=== PATIENT | female | born 1960 | race Caucasian/White ===

== ENCOUNTER 2018-09-14 09:32 | Emergency (ER) | payer BC, OTHER ==
--- NOTE | 2018-09-14 09:37 | PDOC ---
History of Present Illness - General Chief Complaint: Choking Sensation Stated Complaint: STEAK STUCK IN THROAT Time Seen by Provider: 09/14/18 09:37 - History of Present Illness Initial Comments: 58yo F with no significant PMH presenting with foreign body in her throat. Patient states she swallowed a large piece of steak on Saturday night around 8: 30pm and did not feel it pass. Afterwards, any attempt to eat or drink something would just come up. Patient presented to an urgent care which took a soft tissue radiograph which was equivocal: patient was told she either had an obstruction or irritation and was informed to come to the ED if she had not improved in a couple days. Patient denies nausea, but has frequent gagging, as well as vomits anything that she attempts to consume. Denies history of acid reflux or other GI problems. Never had an endoscopy. She feels discomfort in her mid-chest but not in her throat. Last bowel movement was yesterday and was a normal formed brown stool without blood. Patient has not passed flatus the entire weekend. No fevers, chills, chest pain, or shortness of breath. PCP: Dr. Milner Past History - Past Medical History Allergies/Adverse Reactions: Allergies Allergy/AdvReac Type Severity Reaction Status Date / Time peanut Allergy Severe Swelling Verified 09/14/18 09:42 Home Medications: Ambulatory Orders Ondansetron [Zofran Odt -] 4 mg SL TID PRN 09/14/18 Simethicone [Gas-X] 125 mg PO QID PRN 09/14/18 Disorders: Yes (UTERINE POLYPS) - Surgical History Cholecystectomy: Yes - Suicide/Smoking/Psychosocial Hx Smoking History: Never smoked Hx Alcohol Use: No Substance Use Type: Alcohol Review of Systems - Review of Systems Comments:: Constitutional: no fever, no chills HEENT: no throat pain, no dysphagia Cardiovascular: no chest pain, no palpitations Respiratory: no cough, no shortness of breath Gastrointestinal: no nausea, +vomiting, Genitourinary: no dysuria, no frequency Musculoskeletal: no myalgia, no arthralgia Skin: no rash, no itching Neurologic: no headache, +weakness *Physical Exam - Physical Exam Comments: General: Awake, alert, and fully oriented, in no acute distress Head: No signs of trauma Eyes: EOMI, sclera anicteric ENT: Dry mucus membranes, uvula midline, erythematous throat Neck: Normal ROM, supple Lungs: Lungs clear, Normal breath sounds Cardio: Regular rhythm, S1 and S2 present Abdomen: Soft, nontender. No guarding, no rebound, no masses Extremities: Normal range of motion, Distal pulses present SKIN: Warm, Dry, normal turgor Neurologic: Cranial nerves II through XII grossly intact. Normal speech Medical Decision Making - Medical Decision Making 58yo F with no significant PMH presenting with foreign body sensation in her throat. DDX including but not limited to foreign body, achalasia, GERD, inflammation VSS 1mg glucagon IV D5-NS for hydration 09/14/18 10:27 Patient reports feeling better. No longer "gagging every ten minutes" 09/14/18 11:03 Attempted po challenge with sip of water. Patient gagging once again. Plan to contact GI 09/14/18 11:[address] Wilson who will evaluate the patient if she presents to [facility] ER. Plan to call [facility] and have patient present herself there. 09/14/18 12:[address] Arnold at [facility]. Patient amenable to plan 09/14/18 12:16 *DC/Admit/Observation/Transfer Diagnosis at time of Disposition: Foreign body in throat Qualifiers: Encounter type: initial encounter Qualified Code(s): T17.208A - Unspecified foreign body in pharynx causing other injury, initial encounter - Discharge Dispostion Disposition: HOME Condition at time of disposition: Stable - Referrals Referrals: Ml Milner MD [Primary Care Provider] - - Patient Instructions Additional Instructions: You came into the ED for something stuck in your throat. We tried some medicine which helped your discomfort somewhat but you need further evaluation by a specialist. Present yourself to the ED. We have called ahead to let them know you are coming. [address] [address] - Post Discharge Activity
[2018-09-14 09:53] VITALS: BP 127/78; PULSE 87; TEMP 98.4; BMI 28.8
--- NOTE | 2018-09-14 09:53 | PDOC ---
Attending Attestation - Resident Resident Name: Shivani Alanis - ED Attending Attestation I have performed the following: I have examined & evaluated the patient, The case was reviewed & discussed with the resident, I agree w/resident's findings & plan - HPI HPI: 09/14/18 09:49 58 y/o female with possible piece of steak stuck in throat. Went to [facility] and given Zofran and had a negative soft tissue of neck x-ray. Unable to swallow. No vomiting. Denies fever, chills. Feeling weak since unable to drink or eat. No SOB. This occurred on Saturday. 09/14/18 10:09 - Physicial Exam PE: 09/14/18 09:52 VS stable HEENT: unremarkable Heart: RRR without murmur Lungs: CTA b/l, no wheezes rhonchi or rales Abd: soft nontender +BS EXT: neg C/C/E Neuro: grossly intact, no focal deficits noted - Medical Decision Making 09/14/18 12:17 Pt given IVF and Glucagon 1 mg IV. Unchanged except not gagging any more. Spoke with Dr. Lee will see at [facility] for evaluation and EGD ER at [facility] aware patient will be sent by car, stable Pt and family in agreement with plan Agree and reviewed case with Dr. Alanis Final Dx; Esophageal impaction
[2018-09-14] MEDS ORDERED: GLUCAGON 1 MG KIT IVPUSH ONE (10:01)
[2018-09-14] MEDS ORDERED: DEXTROSE 5%-NORMAL SALINE 1,000 ML IV ONE (10:05)
[2018-09-14] MEDS ORDERED: GLUCAGON 1 MG KIT ONE (10:05)
== END 2018-09-14 12:22 | disposition home or self-care (01) ==
LOC: FER 09:32
PROC: 3E033GC Introduction of Other Therapeutic Substance into Peripheral Vein, Percutaneous Approach (ICD-10-PCS; principal; 2018-09-14)
DX: T17.208A Unspecified foreign body in pharynx causing other injury, initial encounter (principal)
CPT/HCPCS: 99283-25

== ENCOUNTER 2018-09-14 12:39 | Day surgery (SDC) | payer BC ==
--- NOTE | 2018-09-14 13:40 | PDOC ---
History of Present Illness - General Chief Complaint: Foreign Body (FB) Stated Complaint: SENT FROM [facility] / EDOSCOPY Time Seen by Provider: 09/14/18 12:57 History Source: Patient, Spouse ( present at bedside), Old Records Exam Limitations: No Limitations - History of Present Illness Initial Comments: HPI: 58 y/o female presenting to [facility] ER on referral from [facility] for further evaluation for food bolus by Dr. Wilson. Pt states she has had the sensation of a piece of steak stuck in her throat for the past two days. She has been unable to successfully swallow liquids or solids. Vomits after every attempt. Tried drinking a carbonated beverage but was unable to keep it down. Sought evaluation at [facility] today, where plain films were obtained. Pt was then referred to the ED. Pt denies h/o of similar symptoms. Denies h/o of esophageal motility disorders, esophageal instrumentation, or radiation therapy. PCP: Dr. Milner at [facility] Hx: - Pt denies past medical history. Denies prescription medications. Surgical Hx: - Pt denies past surgical history. Past History - Past Medical History Allergies/Adverse Reactions: Allergies Allergy/AdvReac Type Severity Reaction Status Date / Time peanut Allergy Severe Swelling Verified 09/14/18 12:43 Home Medications: Ambulatory Orders Ondansetron [Zofran Odt -] 4 mg SL TID PRN 09/14/18 Simethicone [Gas-X] 125 mg PO QID PRN 09/14/18 COPD: No Disorders: Yes (UTERINE POLYPS) - Surgical History Cholecystectomy: Yes - Suicide/Smoking/Psychosocial Hx Smoking History: Never smoked Hx Alcohol Use: No Drug/Substance Use Hx: No Substance Use Type: Alcohol Review of Systems - Review of Systems Able to Perform ROS?: Yes Comments:: In addition to that documented in the HPI above, the additional ROS was obtained : Constitutional: Denies fevers or chills ENMT: Per HPI CV: Denies chest pain Resp: Denies SOB GI: Endorses vomiting. Denies diarrhea : Denies dysuria or urinary frequency *Physical Exam - Vital Signs Last Vital Signs Temp Pulse Resp BP Pulse Ox 97.8 F 78 18 132/78 99 09/14/18 12:40 09/14/18 12:40 09/14/18 12:40 09/14/18 12:40 09/14/18 12:40 - Physical Exam Comments: Constitutional: Well-developed, well-nourished female in no acute distress or obvious discomfort. Found semi-fowlers on hospital bed. Alert and oriented x4. Answered all questions appropriately and completely. Speech was non-labored, non -pressured. Head: Normocephalic. No obvious external signs of trauma. Eyes: Sclerae white. Ears: Hearing grossly intact. Nose: No nasal discharge. Throat: Mild posterior oropharynx erythema. No inflammation, swelling, exudate, or lesions. Teeth and gingiva in good general condition. Neck: Supple, trachea is midline. No JVD or thyromegaly. Cardiovascular / Chest: Regular rate and regular rhythm. No murmur, rubs, clicks, or gallops. Peripheral pulses: radial pulses full. Respiratory: Breathing unlabored. Equal chest rise and fall. Clear to auscultation bilaterally. No stridor, no wheezing, no rhonchi. Gastrointestinal: abdomen is soft, non-tender, non-distended. Neuro: Alert and oriented. Moving all four extremities spontaneously. Skin: Warm, dry, and intact. Psych: Affect: appropriate. Mood: normal. Moderate Sedation - Procedure Monitoring Vital Signs: Procedure Monitoring Vital Signs Temperature 97.8 F 09/14/18 12:40 Pulse Rate 78 09/14/18 12:40 Respiratory Rate 18 09/14/18 12:40 Blood Pressure 132/78 09/14/18 12:40 O2 Sat by Pulse Oximetry (%) 99 09/14/18 12:40 ED Treatment Course - LABORATORY CBC & Chemistry Diagram: 09/14/18 14:12 09/14/18 14:12 - ADDITIONAL ORDERS Additional order review: 09/14/18 14:12 PT with INR 12.00 INR 1.02 PTT (Actin FS) 34.5 09/14/18 14:12 RBC 4.62 MCV 88.4 MCHC 34.6 RDW 14.3 MPV 8.9 Neutrophils % 82.5 Lymphocytes % 10.4 Monocytes % 6.0 Eosinophils % 0.5 Basophils % 0.6 - RADIOLOGY Radiograph Interpretation: [facility] Images: Medical Decision Making - Medical Decision Making *Reviewed vital signs, nursing notes, and prior visit documentation (if available). 58 y/o previously healthy female presenting with suspected food bolus x2 days. No h/o of similar. Evaluated in the department by Dr. Wilson. Will explore further in the endoscopy suite. Pre-op labs, EKG, and CXR obtained. 14:22 Microblog sent to [facility] for admission. Awaiting call back. 09/14/18 15:[address] Naranjo. Verbally appraised of the pts HPI, ED course, and current plan of management. Will admit the pt to med/surg on obs. *DC/Admit/Observation/Transfer Diagnosis at time of Disposition: Foreign body in throat Qualifiers: Encounter type: subsequent encounter Qualified Code(s): T17.208D - Unspecified foreign body in pharynx causing other injury, subsequent encounter - Discharge Dispostion Condition at time of disposition: Stable Decision to Admit order: Yes - Referrals - Patient Instructions - Post Discharge Activity
--- NOTE | 2018-09-14 13:59 | PDOC ---
Attending Attestation - Resident Resident Name: ArnoldKevin - ED Attending Attestation I have performed the following: I have examined & evaluated the patient, The case was reviewed & discussed with the resident, I agree w/resident's findings & plan, Exceptions are as noted - Medical Decision Making 09/14/18 13:57 A portion of this note was documented by scribe services under my direction. I have reviewed the details of the note, within reason, and agree with the documentation with the following case summary and management plan written by me. Patient treated in the ED. Nursing notes are reviewed and incorporated into the medical decision-making. Vital signs reviewed. Peripheral IV access obtained by the nurse, laboratory studies are drawn and sent, reviewed and interpreted by myself. Vital Signs Temp Pulse Resp BP Pulse Ox 97.8 F 78 18 132/78 99 09/14/18 12:40 09/14/18 12:40 09/14/18 12:40 09/14/18 12:40 09/14/18 12:40 58-year-old female with no past medical history presents with food impaction. 2 days ago, the patient was eating a small piece of steak when she felt it get stuck in her esophagus. Patient is unable to tolerate fluids or solids. Reports feeling nauseous. No fevers or chills. No chest pain or abdominal pain. Patient went to urgent care who then referred the patient's the ER. Dr. Wilson at bedside. Patient diagnosed with food impaction. GI doctor at bedside. The patient will go to endoscopy for food impaction. <Cruz Reed - Last Filed: 09/14/18 13:57> - HPI HPI: 09/14/18 14:00 The patient is a 58 YOF with no PMH who presents to the ER for evaluation of food impaction. Patient states that 2 days ago, she ate steak and felt that it was stuck. Patient unable to tolerate PO intake since then. Patient reports she was seen at [facility] ER and was given glucagon there with no relief. The doctor at [facility] discussed the case with Dr. Wilson, who asked the patient to come to [facility] ER for further evaluation. The patient denies chest pain, abdominal pain, shortness of breath, headache and dizziness. Denies fever, chills, nausea, vomit, diarrhea and constipation. Denies dysuria, frequency, urgency and hematuria. Allergies: NKA Past surgical history: None reported. Social history: No reported alcohol, drug or cigarette use. PCP: Dr. Milner - Physicial Exam PE: 09/14/18 13:59 ADULT EXAM GENERAL: Awake, alert, and fully oriented, in no acute distress EYES: PERRLA, EOMI, sclera anicteric, conjunctiva clear ENT: Auricles normal inspection, hearing grossly normal, nares patent, oropharynx clear without exudates. Moist mucosa NECK: Normal ROM, supple, no lymphadenopathy, JVD, or masses ABDOMEN: Soft, nontender. EXTREMITIES: Normal range of motion, no edema. No clubbing or cyanosis. No cords, erythema, or tenderness NEUROLOGICAL: Cranial nerves II through XII grossly intact. Normal speech SKIN: Warm, Dry, normal turgor, no rashes or lesions noted. <Nathalie Lockwood - Last Filed: 09/14/18 14:04>
[2018-09-14 14:23] LABS: BASO % 0.6 % (0-2.0); EOS % 0.5 % (0-4.5); HEMATOCRIT 40.8 % (32.4-45.2); HEMOGLOBIN 14.1 GM/dL (10.7-15.3); LYMPH % 10.4 % (8-40); MCH 30.6 pg (25.7-33.7); MCHC 34.6 g/dl (32.0-36.0); MEAN CELL VOLUME 88.4 fl (80-96); MEAN PLT VOLUME 8.9 fl (7.5-11.1); NEUT % 82.5 % (42.8-82.8); PLATELET COUNT 205 K/MM3 (134-434); RBC 4.62 M/mm3 (3.60-5.2); RDW 14.3 % (11.6-15.6); WHITE BLOOD COUNT 14.2 K/mm3 (4.0-10.0)
[2018-09-14] MEDS ORDERED: MIDAZOLAM HCL 2 MG/2 ML SINGLE DOSE VIAL ONE (14:35)
--- NOTE | 2018-09-14 14:38 | CON.GI ---
Consult Consult Specialty:: Gastroenterology Referred by:: Dr Arnold Reason for Consultation:: Food impaction - History of Present Illness Chief Complaint: unable to swallow History of Present Illness: 58F swallowed a piece of steak at dinner on Saturday night and has nor been able to swallow since then. Was seen at [facility] yesterday afternoon and referred to ER but did not go to the [facility] ER until today. She did try to induce vomiting with coca cola but was unable to free the impaction. She denies any previous dysphagia or impactions. Has acid reflux only on occasion. Had a colonoscopy with Dr Nancy Rodriguez in 2010 which was normal. I have discussed the EGD and food extraction procedure in detail with Leola and her . I informed her of the potential of such complications a s perforation and hemorrhage as well as for aspiration. I also told her that if unsuccessful she may have to be intubated and left under anesthesia until a rigid esophagoscopy could be done. She has granted an informed consent. - History Source History Provided By: Patient Limitations to Obtaining History: No Limitations - Past Surgical History Past Surgical History: Yes: Breast Biopsy (benigh right breast), Cholecystectomy (lap choly), Colonoscopy Additional Surgical History: uterine polyp excisions - Alcohol/Substance Use Hx Alcohol Use: Yes (socially) History of Substance Use: reports: None - Smoking History Smoking history: Never smoked - Social History Usual Living Arrangement: With Spouse ADL: Independent Occupation: publishing Place of : [facility] History of Recent Travel: No Home Medications - Allergies Allergies/Adverse Reactions: Allergies Allergy/AdvReac Type Severity Reaction Status Date / Time peanut Allergy Severe Swelling Verified 09/14/18 12:43 - Home Medications Home Medications: Ambulatory Orders Ondansetron [Zofran Odt -] 4 mg SL TID PRN 09/14/18 Simethicone [Gas-X] 125 mg PO QID PRN 09/14/18 Family Disease History - Family Disease History Family Disease History: Other: Father ( 58 of CVA during incarcerated hernia surgery), Mother (alive and healthy ) Review of Systems - Review of Systems Constitutional: reports: No Symptoms HENT: reports: No Symptoms Respiratory: reports: No Symptoms Gastrointestinal: reports: No Symptoms Neurological: reports: No Symptoms Physical Exam-GI Vital Signs: Vital Signs Temperature 97.8 F 09/14/18 12:40 Pulse Rate 78 09/14/18 12:40 Respiratory Rate 18 09/14/18 12:40 Blood Pressure 132/78 09/14/18 12:40 O2 Sat by Pulse Oximetry (%) 99 09/14/18 12:40 Constitutional: Yes: Anxious Eyes: Yes: Conjunctiva Clear HENT: Yes: Atraumatic Neck: Yes: Trachea Midline Cardiovascular: Yes: Regular Rate and Rhythm Respiratory: Yes: CTA Bilaterally Gastrointestinal Inspection: Yes: Scars (healed laparoscopic incisions) ...Auscultate: Yes: Normoactive Bowel Sounds ...Palpate: Yes: Soft, Other (nontender) ...Rectal Exam: Yes: Deferred Edema: No Peripheral Pulses WNL: Yes Neurological: Yes: Alert, Oriented Imaging - Results Chest X-ray: Report Reviewed (celar to A&P) Problem List - Problems (1) Esophageal obstruction due to food impaction Assessment/Plan: Will do EGD VICKI to extract the impacted food. I explained to Leola that she may have already aspirated since the impaction occurred and symptoms of pneumonia may ensue. She understands that she may need to be intubated to protect her airway depending on my initial endoscopic findings and that she may come to ultimately need a rigid esophagoscopy for extraction of the meat bolus. Code(s): K22.2 - ESOPHAGEAL OBSTRUCTION; T18.128A - FOOD IN ESOPHAGUS CAUSING OTHER INJURY, INITIAL ENCOUNTER (2) History of laparoscopic cholecystectomy Code(s): Z90.49 - ACQUIRED ABSENCE OF OTHER SPECIFIED PARTS OF DIGESTIVE TRACT Assessment/Plan Impression: Esophageal obstruction due to meat impaction. Plan: EGD VICKI to extract impacted Case discussed with Dr Arnold
[2018-09-14 14:40] LABS: INR 1.02 (0.83-1.09)
[2018-09-14 14:43] LABS: ACTIVATED PTT 34.5 SECONDS (25.2-36.5)
[2018-09-14 14:57] LABS: ALBUMIN 3.9 g/dl (3.4-5.0); ALK PHOS 65 U/L (45-117); ANION GAP 7 MMOL/L (8-16); BILIRUBIN,TOTAL 0.5 mg/dL (0.2-1); BLOOD UREA NITROGEN 16 mg/dL (7-18); CALCIUM 8.3 mg/dL (8.5-10.1); CHLORIDE 116 mmol/L (98-107); CO2 23 mmol/L (21-32); CREATININE 0.7 mg/dL (0.55-1.3); GLUCOSE,RANDOM 75 mg/dL (74-106); POTASSIUM 3.8 mmol/L (3.5-5.1); SGOT/AST 17 U/L (15-37); SGPT/ALT 24 U/L (13-61); SODIUM 146 mmol/L (136-145); TOT PROT 7.4 g/dl (6.4-8.2)
--- NOTE | 2018-09-14 15:09 | HP ---
CHIEF COMPLAINT: swallowing difficulty PCP: Dr. Milner at [facility] HISTORY OF PRESENT ILLNESS: Patient is a 58 year old female with no significant past medical history. She presents to [facility] for sensation of having a piece of steak stuck in her throat for approximately 2 days. She is unable to swallow any liquids or solids and when she attempts to eat, she begins to vomit. Patient initially went to [facility] and was then referred to the ER. No history of swallowing difficulty or esophageal dismobility. Patient is s/p EGD with Dr Tolentino and distal esophageal meat impaction was relieved and antibiotics started for suspected aspiration pneumonia. She is for a esophagram tomorrow. As per GI, full liquids tonight, then NPO at midnight for esophagram. ER course was notable for: (1) see egd report, pending (2) s/p meat impaction relieved (3) PAST MEDICAL HISTORY: denies PAST SURGICAL HISTORY: denies Social History: Smoking: denies Alcohol: denies Drugs: denies Family History: Allergies peanut Allergy (Severe, Verified 09/14/18 12:43) Swelling HOME MEDICATIONS: Home Medications Medication Instructions Recorded Ondansetron [Zofran Odt -] 4 mg SL TID PRN 09/14/18 Simethicone [Gas-X] 125 mg PO QID PRN 09/14/18 PHYSICAL EXAMINATION Vital Signs - 24 hr 09/14/18 12:40 Temperature 97.8 F Pulse Rate 78 Respiratory 18 Rate Blood Pressure 132/78 O2 Sat by Pulse 99 Oximetry (%) GENERAL: Awake, alert, and fully oriented, in no acute distress. HEAD: Normal with no signs of trauma. EYES: Pupils equal, round and reactive to light, extraocular movements intact, sclera anicteric, conjunctiva clear. No lid lag. EARS, NOSE, THROAT: Ears normal, nares patent, oropharynx clear without exudates. Moist mucous membranes. NECK: Normal range of motion, supple without lymphadenopathy, JVD, or masses. LUNGS: Breath sounds equal, clear to auscultation bilaterally. No wheezes HEART: Regular rate and rhythm ABDOMEN: Soft, nontender, not distended, normoactive bowel sounds, no guarding, no rebound, no masses. MUSCULOSKELETAL: Normal range of motion at all joints. No bony deformities or tenderness. No CVA tenderness. UPPER EXTREMITIES: No peripheral edema. LOWER EXTREMITIES: No peripheral edema. NEUROLOGICAL: Normal speech. Laboratory Results - last 24 hr 09/14/18 09/14/18 09/14/18 14:12 14:12 14:12 WBC 14.2 H RBC 4.62 Hgb 14.1 Hct 40.8 MCV 88.4 MCH 30.6 MCHC 34.6 RDW 14.3 Plt Count 205 MPV 8.9 Absolute Neuts (auto) 11.7 H Neutrophils % 82.5 Lymphocytes % 10.4 Monocytes % 6.0 Eosinophils % 0.5 Basophils % 0.6 Nucleated RBC % 0 PT with INR 12.00 INR 1.02 PTT (Actin FS) 34.5 Sodium 146 H Potassium 3.8 Chloride 116 H Carbon Dioxide 23 Anion Gap 7 L BUN 16 Creatinine 0.7 Creat Clearance w eGFR 85.95 Random Glucose 75 Calcium 8.3 L Total Bilirubin 0.5 AST 17 ALT 24 Alkaline Phosphatase 65 Total Protein 7.4 Albumin 3.9 ASSESSMENT/PLAN: Patient is a 58 year old female with no significant past medical history. She presents to [facility] for sensation of having a piece of steak stuck in her throat for approximately 2 days. She is unable to swallow any liquids or solids and when she attempts to eat, she begins to vomit. Patient initially went to [facility] and was then referred to the ER. No history of swallowing difficulty or esophageal dismobility. Patient is s/p EGD with Dr Tolentino and distal esophageal meat impaction was relieved and antibiotics started for suspected aspiration pneumonia. She is for a esophagram tomorrow. As per GI, full liquids tonight, then NPO at midnight for esophagram. GI: Difficulty swallowing, removal of foreign object, esophageal meat impaction - s/p egd with meat impaction removal - on levaquin for possible aspiration pneumonia - for esophogram tomorrow - protonix bid - npo at midnight start ivf at midnight fen full liquids, npo at midnight labs in a.m. advance diet per gi full code Visit type - Emergency Visit Emergency Visit: Yes Care time: The patient presented to the Emergency Department on the above date and was hospitalized for further evaluation of their emergent condition. - New Patient This patient is new to me today: Yes Date on this admission: 09/14/18 - Critical Care Critical Care patient: No
[2018-09-14] MEDS ORDERED: ONDANSETRON 4 MG/2 ML VIAL IVPUSH PRN (16:42)
[2018-09-14] MEDS ORDERED: ACETAMINOPHEN 325 MG TABLET (FP) PO PRN (17:17)
--- NOTE | 2018-09-14 17:20 | PN ---
Progress Note (short form) - Note Progress Note: GI Procedure NOte: Please see EGD report. Distal esophageal meat impaction relieved. Antibiotics started for suspected aspiration pneumonia over past 2 days preceding her presentation here. For esophagram tomorrow. Full liquids tonight. Findings discussed with the patient, her and Alem Carias NP. Problem List - Problems (1) Esophageal obstruction due to food impaction Code(s): K22.2 - ESOPHAGEAL OBSTRUCTION; T18.128A - FOOD IN ESOPHAGUS CAUSING OTHER INJURY, INITIAL ENCOUNTER (2) History of laparoscopic cholecystectomy Code(s): Z90.49 - ACQUIRED ABSENCE OF OTHER SPECIFIED PARTS OF DIGESTIVE TRACT
[2018-09-14] MEDS: LACTATED RINGERS SOLUTION 1,000 ML IV SCH ×2 (18:15→21:34)
[2018-09-14] MEDS: MAG HYDROX/AL HYDROX/SIMETH 30 ML UNIT-DOSE CUP PO SCH (18:15)
[2018-09-14] MEDS: PANTOPRAZOLE SODIUM 40 MG VIAL IVPUSH SCH (21:34)
[2018-09-14] MEDS ORDERED: SODIUM CHLORIDE 1,000 ML IV SCH (23:00)
--- NOTE | 2018-09-14 23:45 | EKG ---
Test Reason : Blood Pressure : / mmHG Vent. Rate : 074 BPM Atrial Rate : 074 BPM P-R Int : 176 ms QRS Dur : 082 ms QT Int : 386 ms P-R-T Axes : 066 028 044 degrees QTc Int : 428 ms NORMAL SINUS RHYTHM CANNOT RULE OUT ANTERIOR INFARCT , AGE UNDETERMINED ABNORMAL ECG NO PREVIOUS ECGS AVAILABLE Confirmed by NARCISA MORAN MD ([id number]) on 09/14/2018 11:45:17 PM Referred By: Confirmed By:NARCISA MORAN MD
[2018-09-15] MEDS: MAG HYDROX/AL HYDROX/SIMETH 30 ML UNIT-DOSE CUP PO SCH ×4 (00:01→12:23)
[2018-09-15 00:17] VITALS: BMI 30.4
[2018-09-15 09:21] LABS: BASO % 0.4 % (0-2.0); EOS % 2.4 % (0-4.5); HEMATOCRIT 33.2 % (32.4-45.2); HEMOGLOBIN 11.9 GM/dL (10.7-15.3); LYMPH % 17.1 % (8-40); MCH 30.8 pg (25.7-33.7); MCHC 35.8 g/dl (32.0-36.0); MONO % 6.3 % (3.8-10.2); NEUT % 73.8 % (42.8-82.8); PLATELET COUNT 160 K/MM3 (134-434); RBC 3.86 M/mm3 (3.60-5.2); WHITE BLOOD COUNT 7.8 K/mm3 (4.0-10.0)
[2018-09-15 09:36] LABS: INR 1.14 (0.83-1.09); PROTHROMBIN TIME (PATIENT) 13.5 SEC (9.7-13.0)
[2018-09-15] MEDS: PANTOPRAZOLE SODIUM 40 MG VIAL IVPUSH SCH (09:40)
[2018-09-15 09:42] LABS: ALBUMIN 3.1 g/dl (3.4-5.0); ALK PHOS 53 U/L (45-117); ANION GAP 6 MMOL/L (8-16); BILIRUBIN,TOTAL 0.7 mg/dL (0.2-1); BLOOD UREA NITROGEN 8 mg/dL (7-18); CALCIUM 7.7 mg/dL (8.5-10.1); CHLORIDE 110 mmol/L (98-107); CO2 26 mmol/L (21-32); CREATININE 0.6 mg/dL (0.55-1.3); GLUCOSE,RANDOM 89 mg/dL (74-106); MAGNESIUM 2.1 mg/dL (1.8-2.4); POTASSIUM 3.8 mmol/L (3.5-5.1); SGOT/AST 16 U/L (15-37); SGPT/ALT 19 U/L (13-61); SODIUM 142 mmol/L (136-145); TOT PROT 5.9 g/dl (6.4-8.2)
--- NOTE | 2018-09-15 10:20 | PN ---
Physical Exam: SUBJECTIVE: Patient seen and examined at the bedside. only c/o of sore throat. otherwise doing well. OBJECTIVE: Vital Signs Period Temp Pulse Resp BP Sys/Faulkner Pulse Ox Last 24 Hr 97.8 F-99.4 F 64-96 14-21 111-132/60-78 95-100 GENERAL: Awake, alert, and fully oriented, in no acute distress. HEAD: Normal with no signs of trauma. EYES: Pupils equal, round and reactive to light, extraocular movements intact, sclera anicteric, conjunctiva clear. No lid lag. EARS, NOSE, THROAT: Ears normal, nares patent, oropharynx clear without exudates. Moist mucous membranes. NECK: Normal range of motion, supple without lymphadenopathy, JVD, or masses. LUNGS: Breath sounds equal, clear to auscultation bilaterally. No wheezes HEART: Regular rate and rhythm ABDOMEN: Soft, nontender, not distended, normoactive bowel sounds, no guarding, no rebound, no masses. MUSCULOSKELETAL: Normal range of motion at all joints. No bony deformities or tenderness. No CVA tenderness. UPPER EXTREMITIES: No peripheral edema. LOWER EXTREMITIES: No peripheral edema. NEUROLOGICAL: Normal speech. Laboratory Results - last 24 hr 09/14/18 09/14/18 09/14/18 14:12 14:12 14:12 WBC 14.2 H RBC 4.62 Hgb 14.1 Hct 40.8 MCV 88.4 MCH 30.6 MCHC 34.6 RDW 14.3 Plt Count 205 MPV 8.9 Absolute Neuts (auto) 11.7 H Neutrophils % 82.5 Lymphocytes % 10.4 Monocytes % 6.0 Eosinophils % 0.5 Basophils % 0.6 Nucleated RBC % 0 PT with INR 12.00 INR 1.02 PTT (Actin FS) 34.5 Sodium 146 H Potassium 3.8 Chloride 116 H Carbon Dioxide 23 Anion Gap 7 L BUN 16 Creatinine 0.7 Creat Clearance w eGFR 85.95 Random Glucose 75 Calcium 8.3 L Magnesium Total Bilirubin 0.5 AST 17 ALT 24 Alkaline Phosphatase 65 Total Protein 7.4 Albumin 3.9 Blood Type Antibody Screen 09/14/18 09/14/18 09/14/18 14:12 14:19 19:15 WBC RBC Hgb Hct MCV MCH MCHC RDW Plt Count MPV Absolute Neuts (auto) Neutrophils % Lymphocytes % Monocytes % Eosinophils % Basophils % Nucleated RBC % PT with INR INR PTT (Actin FS) Sodium Potassium Chloride Carbon Dioxide Anion Gap BUN Creatinine Creat Clearance w eGFR Random Glucose Calcium Magnesium Total Bilirubin AST ALT Alkaline Phosphatase Total Protein Albumin Blood Type O POSITIVE O POSITIVE O POSITIVE Antibody Screen Negative Negative 09/15/18 09/15/18 09/15/18 08:10 08:10 08:10 WBC 7.8 RBC 3.86 Hgb 11.9 Hct 33.2 D MCV 86.0 MCH 30.8 MCHC 35.8 RDW 14.0 Plt Count 160 D MPV 9.0 Absolute Neuts (auto) 5.8 Neutrophils % 73.8 Lymphocytes % 17.1 D Monocytes % 6.3 Eosinophils % 2.4 D Basophils % 0.4 Nucleated RBC % 0 PT with INR 13.50 H INR 1.14 H PTT (Actin FS) Sodium 142 Potassium 3.8 Chloride 110 H Carbon Dioxide 26 Anion Gap 6 L BUN 8 Creatinine 0.6 Creat Clearance w eGFR 102.68 Random Glucose 89 Calcium 7.7 L Magnesium 2.1 Total Bilirubin 0.7 AST 16 ALT 19 Alkaline Phosphatase 53 Total Protein 5.9 L Albumin 3.1 L Blood Type Antibody Screen Active Medications Generic Name Dose Route Start Last Admin Trade Name Freq PRN Reason Stop Dose Admin Acetaminophen 650 mg 09/14/18 17:17 Tylenol - PO Q4H PRN PAIN LEVEL 1-5 Al Hydroxide/Mg Hydroxide 30 ml 09/14/18 18:00 09/15/18 06:05 Mylanta Oral Suspension - PO Not Given Q6HPO RANDY Lactated Ringer's 1,000 mls @ 125 mls/hr 09/14/18 16:45 09/14/18 21:34 Lactated Ringers Solution IV 125 mls/hr ASDIR RANDY Administration Levofloxacin 500 mg in 100 mls @ 100 mls/hr 09/14/18 17:15 09/15/18 06:02 Levaquin 500 Mg Premixed Ivpb - IVPB 100 mls/hr DAILY@0600 [facility] Administration Protocol Pantoprazole Sodium 40 mg 09/14/18 22:00 09/15/18 09:40 Protonix Iv IVPUSH 40 mg BID RANDY Administration ASSESSMENT/PLAN: Patient is a 58 year old female with no significant past medical history. She presents to [facility] for sensation of having a piece of steak stuck in her throat for approximately 2 days. She is unable to swallow any liquids or solids and when she attempts to eat, she begins to vomit. Patient initially went to [facility] and was then referred to the ER. No history of swallowing difficulty or esophageal dismobility. Patient is s/p EGD with Dr Tolentino and distal esophageal meat impaction was relieved and antibiotics started for suspected aspiration pneumonia. She had an esophogram today and results are pending. GI: Difficulty swallowing, removal of foreign object, esophageal meat impaction - s/p egd with meat impaction removal - on levaquin for possible aspiration pneumonia - esophogram official read pending - protonix advance diet per gi Pulm; possible aspiration pneumonia lungs clear to auscultation, tolerating room air on levaquin iv 500mg day #2 fen npo, advance diet per GI full code Visit type - Emergency Visit Emergency Visit: Yes Care time: The patient presented to the Emergency Department on the above date and was hospitalized for further evaluation of their emergent condition. - New Patient This patient is new to me today: No - Critical Care Critical Care patient: No - Discharge Referral Referred to [facility] No
--- NOTE | 2018-09-15 12:42 | PN.GI ---
GI Progress Note Subjective: GI>NOte> No cough, dyspnea or dysphagia. No fever. Esophagram reveals no obvious stricture. Andrey advance diet - Objective Vital Signs: Vital Signs Temperature 98.4 F 09/15/18 08:00 Pulse Rate 81 09/15/18 08:00 Respiratory Rate 20 09/15/18 08:00 Blood Pressure 126/66 09/15/18 08:00 O2 Sat by Pulse Oximetry (%) 95 09/15/18 07:48 Constitutional: Calm Cardiovascular: Yes: Regular Rate and Rhythm Respiratory: Yes: CTA Bilaterally ...Auscultate: Yes: Normoactive Bowel Sounds ...Palpate: Yes: Soft Labs: CBC, BMP 09/15/18 08:10 09/15/18 08:10 INR, PTT INR 1.14 (0.83-1.09) H 09/15/18 08:10 Assessment/Plan Impression: Esophageal obstruction due to meat impaction disempacted yesterday Plan: Trial of solid diet If tolerated can discharge on PPI and antibiotic Problem List - Problems (1) Esophageal obstruction due to food impaction Code(s): K22.2 - ESOPHAGEAL OBSTRUCTION; T18.128A - FOOD IN ESOPHAGUS CAUSING OTHER INJURY, INITIAL ENCOUNTER (2) History of laparoscopic cholecystectomy Code(s): Z90.49 - ACQUIRED ABSENCE OF OTHER SPECIFIED PARTS OF DIGESTIVE TRACT
[2018-09-15 14:41] VITALS: BP 133/71; PULSE 86; TEMP 98.6
[2018-09-15] MEDS ORDERED: ACETAMINOPHEN 325 MG TABLET (FP) PO ONE (15:41)
[2018-09-15] MEDS ORDERED: SIMETHICONE 80 MG TAB.CHEW (FP) PO ONE (16:26)
--- NOTE | 2018-09-15 16:30 | DS ---
Physical Exam: SUBJECTIVE: Patient seen and examined at the bedside. tolerated lunch, states she had some lasagna and water and was able to hold it down without difficulty. no nausea or abdominal pain. she wants to go home but expressed fear over this occurring again. encouraged her to eat slowly and try to have some softer foods that are easier to swallow and advance as tolerated. she is having a slight headache, so tylenol 650mg was given. OBJECTIVE: discharge home. she tolerated solid foods Esophagram negative for stricture had EGD on 09/14/18 with foreign body removal cleared for d/c from GI once she tolerates food Vital Signs Period Temp Pulse Resp BP Sys/Faulkner Pulse Ox Last 24 Hr 98.0 F-99.4 F 64-96 14-21 111-133/60-74 95-100 PHYSICAL EXAM GENERAL: The patient is awake, alert, and fully oriented, in no acute distress. HEAD: Normal with no signs of trauma. EYES: PERRL, extraocular movements intact, sclera anicteric, conjunctiva clear. ENT: Ears normal, nares patent, oropharynx clear without exudates, moist mucous membranes. NECK: Trachea midline, full range of motion, supple. LUNGS: Breath sounds equal, clear to auscultation bilaterally, no wheezes, no crackles, no accessory muscle use. HEART: Regular rate and rhythm, S1, S2 without murmur, rub or gallop. ABDOMEN: Soft, nontender, denies abdominal pain. had some bloating after eating without pain, and she has been encouraged to ambulate. EXTREMITIES: 2+ pulses, warm, well-perfused, no edema. NEUROLOGICAL: Normal speech, gait not observed. PSYCH: Normal mood, normal affect. SKIN: Warm, dry, normal turgor, no rashes or lesions noted. LABS Laboratory Results - last 24 hr 09/14/18 09/15/18 09/15/18 19:15 08:10 08:10 WBC RBC Hgb Hct MCV MCH MCHC RDW Plt Count MPV Absolute Neuts (auto) Neutrophils % Lymphocytes % Monocytes % Eosinophils % Basophils % Nucleated RBC % PT with INR 13.50 H INR 1.14 H Sodium 142 Potassium 3.8 Chloride 110 H Carbon Dioxide 26 Anion Gap 6 L BUN 8 Creatinine 0.6 Creat Clearance w eGFR 102.68 Random Glucose 89 Calcium 7.7 L Magnesium 2.1 Total Bilirubin 0.7 AST 16 ALT 19 Alkaline Phosphatase 53 Total Protein 5.9 L Albumin 3.1 L Blood Type O POSITIVE 09/15/18 08:10 WBC 7.8 RBC 3.86 Hgb 11.9 Hct 33.2 D MCV 86.0 MCH 30.8 MCHC 35.8 RDW 14.0 Plt Count 160 D MPV 9.0 Absolute Neuts (auto) 5.8 Neutrophils % 73.8 Lymphocytes % 17.1 D Monocytes % 6.3 Eosinophils % 2.4 D Basophils % 0.4 Nucleated RBC % 0 PT with INR INR Sodium Potassium Chloride Carbon Dioxide Anion Gap BUN Creatinine Creat Clearance w eGFR Random Glucose Calcium Magnesium Total Bilirubin AST ALT Alkaline Phosphatase Total Protein Albumin Blood Type HOSPITAL COURSE: Date of Admission:09/14/18 Date of Discharge: 09/15/18 Patient is a 58 year old female with no significant past medical history. She presents to [facility] for sensation of having a piece of steak stuck in her throat for approximately 2 days. She is unable to swallow any liquids or solids and when she attempts to eat, she begins to vomit. Patient initially went to [facility] and was then referred to the ER. No history of swallowing difficulty or esophageal dismobility. Patient is s/p EGD with Dr Tolentino on 09/14/2018 and distal esophageal meat impaction was relieved and antibiotics started for suspected aspiration pneumonia. She had an esophogram today without evidence of stricture. She has tolerated her lunch (regular) diet and denies any abdominal pain, difficulty swallowing or nausea/vomiting. She is asking to go home as she feels better. GI: Difficulty swallowing, removal of foreign object, esophageal meat impaction - resolved. - s/p egd with meat impaction removal on 09/14/18 - on levaquin for possible aspiration pneumonia - 500mg PO x 5 more days called into her pharmacy - esophogram without evidence of stricture and her diet has been advanced which she has tolerated. - protonix 40mg daily Pulm; possible aspiration pneumonia - under treatment lungs clear to auscultation, tolerating room air chest xray negative for acute process on levaquin iv 500mg day for 5 more days no wbc elevation or fevers. no shortness of breath. discharge home. follow up with PCP and GI as an outpatient. I encouraged her to eat slowly and start with softer foods. She wants to go home as she feels better and tolerated lunch (regular diet). full code Minutes to complete discharge: 60 Discharge Summary Reason For Visit: FOREIGN BODY IN PHARYNX Current Active Problems Esophageal obstruction due to food impaction (Acute) Foreign body in throat (Acute) History of laparoscopic cholecystectomy (Acute) Condition: Improved - Instructions Diet, Activity, Other Instructions: Mrs Rodgers: You were seen at [facility] on 09/14/2018 for esophageal foreign body removal. An esophgram revealed no stricture of your esophagus and your diet has been advanced. Here are our recommendations: Esophogeal foreign body removal on 09/14/2018. Your esophgram revealed that your esophagus had no stricture. Please continue your diet, regular as tolerated. Continue the Levaquin 500mg daily for 5 more days. Please follow up with your PCP. Thank you for allowing us to care for you. Referrals: Ml Milner MD [Primary Care Provider] - Disposition: HOME - Home Medications Comprehensive Discharge Medication List: Ambulatory Orders Ondansetron [Zofran Odt -] 4 mg SL TID PRN 09/14/18 Simethicone [Gas-X] 125 mg PO QID PRN 09/14/18 Pantoprazole Sodium [Protonix] 40 mg PO DAILY #30 tablet. 09/15/18 levoFLOXacin [Levaquin -] 500 mg PO DAILY #5 tablet 09/15/18 This patient is new to me today: No Emergency Visit: Yes Care time: The patient presented to the Emergency Department on the above date and was hospitalized for further evaluation of their emergent condition. Critical Care patient: No - Discharge Referral Referred to [facility] No
[2018-09-15] MEDS: LACTATED RINGERS SOLUTION 1,000 ML IV SCH (17:11)
== END 2018-09-15 17:12 | disposition home or self-care (01) ==
LOC: JER 12:39 → JASUSAT 14:23 → SUATTDRO 14:23 → J6S 17:50 → JASUSAT 09-15 17:12
PROVIDERS: ATTEND Nurse Practitioner Family
PROC: 0DC38ZZ Extirpation of Matter from Lower Esophagus, Via Natural or Artificial Opening Endoscopic (ICD-10-PCS; principal; 2018-09-14 15:00)
DX: T17.228A Food in pharynx causing other injury, initial encounter (principal); X58.XXXA Exposure to other specified factors, initial encounter; Y93.89 Activity, other specified; Y92.009 Unspecified place in unspecified non-institutional (private) residence as the place of occurrence of the external cause; K29.70 Gastritis, unspecified, without bleeding; K22.10 Ulcer of esophagus without bleeding
CPT/HCPCS: 36415; 71045-TC-FY; 74220-TC-FY; 74240-TC-FY; 80048; 80053; 83735; 85025; 85610; 85730; 86850; 86900; 86901; 93005; 93010; 94760; 99284-25